=== PATIENT | male | born 1950 | race Caucasian/White ===

== ENCOUNTER → 2016-06-15 | Outpatient (CLI) | payer MEDICARE ==
[~2016-06-15] MED LIST: ASPIRIN CHEWABL81 MG PO; BUMETANIDE2 MG PO; COREG 25MG TAB25 MG PO; HYDRALAZINE HCL50 MG PO; HYDROCODON-ACE1 EAC6 PO; KLOR-CON 1010 MEQ PO; LEVAQUIN500 MG PO; LOSARTAN-HCTZ1 EAC1 PO; NEURONTIN800 MG PO; NITROGLYCERIN6.5 M1 PO; SYMBICORT 16010.2 GM INH; ZOCOR20 MG PO
[2016-06-15 09:08] LABS: HEMOGLOBIN 15.4 gm/dl (14.0-17.5); RED BLOOD COUNT 4.87 M/UL (4.20-5.50); WHITE BLOOD COUNT 7.7 K/UL (4.5-11.0)
[2016-06-15 09:26] LABS: BUN/CREATININE RATIO 14 (0-10)
== END ==
LOC: LAB 08:17
PROVIDERS: Internal Medicine Cardiovascular Disease
DX: I10 Essential (primary) hypertension (principal); I47.2 Ventricular tachycardia; I25.10 Atherosclerotic heart disease of native coronary artery without angina pectoris; T82.198A Other mechanical complication of other cardiac electronic device, initial encounter; Z95.1 Presence of aortocoronary bypass graft
CPT/HCPCS: 36415; 71020; 80048; 85025

== ENCOUNTER → 2016-06-16 | Outpatient (CLI) | payer MEDICARE | END | disposition home or self-care (01) | LOC: CATH 06:53 | PROC: 0JH608Z Insertion of Defibrillator Generator into Chest Subcutaneous Tissue and Fascia, Open Approach (ICD-10-PCS; principal; 2016-06-16) | PROC: 0JPT0PZ Removal of Cardiac Rhythm Related Device from Trunk Subcutaneous Tissue and Fascia, Open Approach (ICD-10-PCS; principal; 2016-06-16) | DX: Z45.02 Encounter for adjustment and management of automatic implantable cardiac defibrillator (principal); I47.2 Ventricular tachycardia; I25.5 Ischemic cardiomyopathy; I11.0 Hypertensive heart disease with heart failure; I50.22 Chronic systolic (congestive) heart failure; I25.119 Atherosclerotic heart disease of native coronary artery with unspecified angina pectoris; I25.2 Old myocardial infarction; F17.210 Nicotine dependence, cigarettes, uncomplicated; E78.5 Hyperlipidemia, unspecified; Z95.1 Presence of aortocoronary bypass graft; Z95.5 Presence of coronary angioplasty implant and graft; Z79.82 Long term (current) use of aspirin; Z79.891 Long term (current) use of opiate analgesic; Z79.899 Other long term (current) drug therapy; Z98.890 Other specified postprocedural states; J30.9 Allergic rhinitis, unspecified; M19.90 Unspecified osteoarthritis, unspecified site; J44.9 Chronic obstructive pulmonary disease, unspecified; E78.00 Pure hypercholesterolemia, unspecified; R94.30 Abnormal result of cardiovascular function study, unspecified; R06.02 Shortness of breath; Z86.73 Personal history of transient ischemic attack (TIA), and cerebral infarction without residual deficits | CPT/HCPCS: 93641; C1722; J2250; J3010; J3370; J7040; J7050 ==

== ENCOUNTER → 2016-07-08 | Outpatient (CLI) | payer MEDICARE | LOC: HEART 5 10:48 | DX: J44.9 Chronic obstructive pulmonary disease, unspecified (principal); R94.2 Abnormal results of pulmonary function studies; F17.210 Nicotine dependence, cigarettes, uncomplicated | CPT/HCPCS: 94060; 94729 ==

== ENCOUNTER → 2016-07-21 | Outpatient (CLI) | payer MEDICARE | LOC: CT 07:17 | DX: R93.8 Abnormal findings on diagnostic imaging of other specified body structures (principal); G47.34 Idiopathic sleep related nonobstructive alveolar hypoventilation; J98.11 Atelectasis | CPT/HCPCS: 36415; 36600; 71260; 82565; 82803; 84520; J7050; Q9962 ==